=== PATIENT | male | born 1960 | race Caucasian/White ===

== ENCOUNTER 2018-05-22 12:04 | Inpatient (IN) | payer MEDICARE, MEDICAID | END 2018-05-27 14:15 | disposition home or self-care (01) | LOC: ER 12:04 → ORTHO 4S 05-25 16:08 → ED HOLD 14:18 → PCU 3S 23:43 | DX: A41.9 Sepsis, unspecified organism (principal); J18.1 Lobar pneumonia, unspecified organism; N17.9 Acute kidney failure, unspecified; K40.90 Unilateral inguinal hernia, without obstruction or gangrene, not specified as recurrent ==

== ENCOUNTER 2021-10-30 11:03 | Emergency (ER) | payer MEDICARE, MEDICAID ==
[~2021-10-30] VITALS: Ht 172.7 cm; Wt 68.2 kg
[~2021-10-30 11:03] MED LIST: INSU100C4 SQ; INSU100V12 SQ; LISI2.5T89 PO; tamsulosin capsule PO
[2021-10-30 12:14] VITALS: BP 108/61
[2021-10-30 12:35] LABS: ALANINE AMINOTRANSFERASE 22 U/L (12-78); ALBUMIN 3.9 G/DL (3.4-5.0); ALBUMIN/GLOBULIN RATIO 1.1 (1.1-1.5); ALKALINE PHOSPHATASE 107 IU/L (46-116); ANION GAP 8 (8-16); ASPARTATE AMINO TRANSFERASE 11 U/L (10-37); BILIRUBIN,TOTAL 0.7 MG/DL (0.1-1.0); BLOOD UREA NITROGEN 24 MG/DL (7-18); BUN/CREATININE RATIO 21.8 (5.4-32.0); CALCIUM 9.1 MG/DL (8.5-10.1); CHLORIDE 101 MMOL/L (99-107); GLUCOSE 205 MG/DL (70-104); POTASSIUM 4.1 MMOL/L (3.5-5.1); SODIUM 140 MMOL/L (135-145); TOTAL CARBON DIOXIDE 31.3 MMOL/L (24-32); TOTAL PROTEIN 7.6 G/DL (6.4-8.2); eGFR 68 ML/MIN
[2021-10-30 12:38] LABS: HEMATOCRIT 41.9 % (42.0-52.0); MEAN PLATELET VOLUME 8.5 FL (7.4-10.4); RED CELL DISTRIBUTION WIDTH 13.3 % (11.5-14.5)
[2021-10-30 12:39] LABS: BASOPHILS % (AUTO) 0.4 % (0-1); EOSINOPHILS # (AUTO) 0.3 X10'3 (0-0.9); HEMOGLOBIN 13.9 g/dl (14.0-17.9); LYMPHOCYTES # (AUTO) 0.5 X10'3 (1.1-4.8); LYMPHOCYTES % (AUTO) 5.4 % (21-51); MEAN CORPUSCULAR HEMOGLOBIN 29.4 PG (27.0-31.0); MEAN CORPUSCULAR HGB CONC 33.2 g/dL (33.0-36.5); MEAN CORPUSCULAR VOLUME 88.7 FL (78-98); MONOCYTES # (AUTO) 0.9 X10'3 (0-0.9); NEUTROPHILS # (AUTO) 6.9 X10'3 (1.8-7.7); NEUTROPHILS % (AUTO) 80.2 % (42-75); PLATELET COUNT 257 X10'3 (140-440); RED BLOOD COUNT 4.73 X10'6 (4.70-6.10); WHITE BLOOD COUNT 8.6 X10'3 (4.5-11.0)
[2021-10-30] MEDS ORDERED: AZIT-21 PO (12:42)
[2021-10-30] MEDS ORDERED: BENZ-38 PO (12:42)
[2021-10-30] MEDS ORDERED: AMOX-117 PO (12:42)
== END 2021-10-30 12:51 | disposition home or self-care (01) ==
LOC: ER 11:03
DX: R05.9 Cough, unspecified (principal); R62.50 Unspecified lack of expected normal physiological development in childhood; I10 Essential (primary) hypertension; E11.9 Type 2 diabetes mellitus without complications; Z79.899 Other long term (current) drug therapy; Z79.84 Long term (current) use of oral hypoglycemic drugs
CPT/HCPCS: 36415; 71046; 80053; 83605; 83880; 85025; 87040; 99284

== ENCOUNTER 2023-05-19 11:32 | Emergency (ER) | payer MEDICARE, MEDICAID ==
[~2023-05-19] VITALS: Ht 170.2 cm; Wt 160.0 kg
[2023-05-19 12:29] LABS: BASOPHILS # (AUTO) 0.1 X10'3 (0-0.2); BASOPHILS % (AUTO) 0.7 % (0-1); EOSINOPHILS # (AUTO) 0.1 X10'3 (0-0.9); HEMATOCRIT 39.7 % (42.0-52.0); HEMOGLOBIN 13.2 g/dl (14.0-17.9); LYMPHOCYTES # (AUTO) 1.1 X10'3 (1.1-4.8); LYMPHOCYTES % (AUTO) 16.6 % (21-51); MEAN CORPUSCULAR HEMOGLOBIN 30.3 PG (27.0-31.0); MEAN CORPUSCULAR HGB CONC 33.3 g/dL (33.0-36.5); MEAN PLATELET VOLUME 8.1 FL (7.4-10.4); MONOCYTES # (AUTO) 0.4 X10'3 (0-0.9); MONOCYTES % (AUTO) 5.7 % (2-12); NEUTROPHILS # (AUTO) 5.2 X10'3 (1.8-7.7); PLATELET COUNT 236 X10'3 (140-440); RED BLOOD COUNT 4.36 X10'6 (4.70-6.10); RED CELL DISTRIBUTION WIDTH 13.1 % (11.5-14.5); WHITE BLOOD COUNT 6.8 X10'3 (4.5-11.0)
[2023-05-19 12:45] LABS: ALBUMIN 3.6 G/DL (3.4-5.0); ANION GAP 7 (8-16); BLOOD UREA NITROGEN 28 MG/DL (7-18); BUN/CREATININE RATIO 25.2 (10.0-20.0); CALCIUM 8.8 MG/DL (8.5-10.1); CHLORIDE 104 MMOL/L (99-107); CREATININE 1.11 MG/DL (0.60-1.10); GLUCOSE 133 MG/DL (70-104); LIPASE 10 U/L (16-77); POTASSIUM 4.3 MMOL/L (3.5-5.1); SODIUM 142 MMOL/L (135-145); TOTAL CARBON DIOXIDE 31.3 MMOL/L (24-32); eCRCL 64 ML/MIN; eGFR 67 ML/MIN
[2023-05-19] MEDS: ondansetron/PF 4mg/2ml inj IV ONE (17:03)
[2023-05-19] MEDS: diatr meglu/diatrizoate 30ml oral sol.-(3 dose) bottle PO SCH (17:04)
[2023-05-19] MEDS: morphine 4 MG/ML inj SYRINge IV ONE (17:04)
[2023-05-19] MEDS: pantoprazole 40 MG vial IV ONE (17:04)
[2023-05-19] MEDS ORDERED: iohexol 350MG/ML 100ml bottle IV ONE (17:12)
[2023-05-19] MEDS: normal saline 1000ML IV soln IVB ONE ×2 (17:14→23:17)
[2023-05-19] MEDS ORDERED: iohexol 300 MG/1 ML 50ml polymer ONE (19:18)
[2023-05-19 21:25] LABS: BILIRUBIN,URINE NEGATIVE (Neg); CLARITY,URINE CLEAR (Clear); COLOR,URINE YELLOW (Yellow); GLUCOSE, URINE NEGATIVE (Neg); KETONES,URINE 15 mg/dl (Neg); LEUKOCYTE ESTERASE ,URINE NEGATIVE (Neg); NITRITES, URINE NEGATIVE (Neg); OCCULT BLOOD,URINE NEGATIVE (Neg); PH,URINE 5.5 (4.8-8.0); PROTEIN,URINE NEGATIVE (Neg); UROBILINOGEN,URINE 0.2 E.U/dL (0.2-1.0)
[2023-05-19 22:04] LABS: UA COLLECTION TYPE CLN CATCH MIDSTREAM
[2023-05-19] MEDS ORDERED: LEVO-65 PO (22:32)
[2023-05-19] MEDS ORDERED: FLO0.4C PO (22:32)
[2023-05-19] MEDS: LidoCAINE 2% Topical Jelly 11mL syringe (UROJET) TOP ONE (23:16)
[2023-05-19] MEDS: tamsulosin 0.4mg capsule PO SCH (23:31)
[2023-05-20 00:07] VITALS: BP 145/88; PULSE 89; RESP 20; TEMP 98.2; O2SAT 98
[2023-05-22] MEDS ORDERED: HYDR-3964 PO (11:52)
== END 2023-05-20 00:11 | disposition home or self-care (01) ==
LOC: ER 11:33
DX: N40.1 Benign prostatic hyperplasia with lower urinary tract symptoms (principal); R33.8 Other retention of urine; I10 Essential (primary) hypertension; E11.9 Type 2 diabetes mellitus without complications
CPT/HCPCS: 36415; 74018; 74177; 80048; 81003; 83690; 85025; 96361; 96365; 96366; 96375; 99285; C9113; J2270; J2405; J3490; J7030; Q9963; Q9967